=== PATIENT | male | born 1950 | race African-American/Black ===

== ENCOUNTER 2016-06-11 20:32 | Inpatient (IN) | payer MEDICARE ==
[~2016-06-11] VITALS: Ht 188 cm; Wt 99.8 kg
[2016-06-11] MEDS ORDERED: NKM (20:44)
[2016-06-11 20:54] VITALS: BP 155/101
[2016-06-11] MEDS ORDERED: Famotidine 20 MG/ 2ML VIAL IVP ONE (21:15)
--- NOTE | 2016-06-11 21:26 | Emergency Room Report ---
History of Present Illness General Chief Complaint: Dyspnea/Respdistress Source: Patient Present Illness HPI Patient presents with one week of increased dyspnea when he is lying down. It feels like he can't catch his breath when this occurs. Gets better when he sits up. He has been sleeping sitting up. He says he gets chest pain while laying down also. He Is taking a medicine for his esophagus twice a day that is orange and white capsule. He usually cared for at the [facility]. They've had a testing there. He also is treated for PTSD and GERD. He denies any exertional chest pain or exertional dyspnea. No fevers, cough, sore throat, vomiting, diarrhea, melena. Some nausea. Allergies: Coded Allergies: No Known Allergies (Unverified , 06/11/16) Patient History Past Medical History: see triage record Past Surgical History: other - glass eye L Social History: Denies: alcohol use, drug use, smoking Social History Narrative lives by himself Reviewed Nursing Documentation: PMH: Agreed, PSxH: Agreed Nursing Documentation-PM Past Medical History: No Stated History Review of Systems All Other Systems: negative except mentioned in HPI Physical Exam Vital Signs Date Time Temp Pulse Resp B/P Pulse Ox O2 Delivery O2 Flow Rate FiO2 06/11/16 20:39 99.0 89 16 161/95 99 Room Air 06/11/16 20:54 99 Sp02 EP Interpretation: reviewed, normal General Appearance: well appearing, no apparent distress, GCS 15 Head: normocephalic Eyes: bilateral eye PERRL, bilateral eye normal inspection ENT: moist mucus membranes Neck: supple Respiratory: lungs clear, normal breath sounds Cardiovascular #1: regular rate, rhythm Cardiovascular #2: 2+ radial (R) Gastrointestinal: normal inspection, normal bowel sounds, non tender, no mass, non-distended Musculoskeletal: back normal, gait/station normal, normal range of motion Neurologic: alert, oriented x3 Psychiatric: anxious - slightly Skin: normal inspection, warm/dry Medical Decision Making Diagnostic Impression: Primary Impression: Chest pain Qualified Codes: R07.89 - Other chest pain Additional Impressions: Abnormal EKG GERD (gastroesophageal reflux disease) Qualified Codes: K21.9 - Gastro-esophageal reflux disease without esophagitis ER Course The patient presents with an atypical history. He states that this discomfort is when he is laying down he gets dyspneic. He says he also feels weak. We need to evaluate him for possible acute coronary syndrome, acute myocardial infarction, GERD, esophagitis, gastritis amongst others. The patient we evaluated with labs, EKG and chest x-ray. The patient will be treated with Pepcid and Zofran. EKG is abnormal with ST elevation that's not diagnostic for STEMI. Based on this the patient needs to be observed in the hospital to exclude acute coronary syndrome. His initial labs are significant for negative troponin. Patient given aspirin and nitrolpaste. Need to observe patient and repeat troponin with monitoring his heart. Admit telemetry Dr. Chand. Laboratory Tests Test 06/12/16 06:00 06/12/16 14:05 06/12/16 22:10 Troponin I < 0.30 ng/mL (<=0.30) < 0.30 ng/mL (<=0.30) < 0.30 ng/mL (<=0.30) Triglycerides Level 237 mg/dL (< 150) H Cholesterol Level 203 mg/dL (< 200) H LDL Cholesterol 122 mg/dL (60-99) H HDL Cholesterol 34 mg/dL (> 60) Cholesterol/HDL Ratio 6.0 (3.3-4.4) H EKG Diagnostic Results Rate: normal Rhythm: NSR ST Segments: other - J point or ST elevation Inf and anterior, not STEMI criteria Rhythm Strip Diag. Results EP Interpretation: yes Rhythm: NSR, no PVC's, no ectopy Chest X-Ray Diagnostic Results EP Interpretation: Yes Findings: no consolidation, no effusion, no pneumothorax, no acute cardiopulmonary disease Number of Views: 1 Last Vital Signs Date Time Temp Pulse Resp B/P Pulse Ox O2 Delivery O2 Flow Rate FiO2 06/11/16 20:54 94 18 Room Air 99 06/11/16 20:54 98.7 155/101 99 Status: improved Disposition: ADMITTED INPATIENT Condition: Serious Referrals: NOT CHOSEN ALEXANDRA/,REFERRING (PCP) Austin Singer M.D. Jun 11, 2016 21:26
[2016-06-11] MEDS ORDERED: Nitroglycerin 2% oint pkt TOPIC ONE (21:30)
[2016-06-11] MEDS ORDERED: Aspirin Baby 81mg ORAL ONE (21:30)
[2016-06-11 21:36] LABS: BASOPHILS % (AUTO) 1.9 % (0.0-2.0); EOSINOPHILS % (AUTO) 1.2 % (0.0-3.0); LYMPHOCYTES % (AUTO) 26.7 % (20.0-45.0); MEAN CORPUSCULAR HEMOGLOBIN 32.6 PG (27.0-31.0); MEAN CORPUSCULAR HGB CONC 33.8 G/DL (32.0-36.0); MEAN CORPUSCULAR VOLUME 96 FL (80-99); MEAN PLATELET VOLUME 11.5 FL (6.5-10.1); MONOCYTES % (AUTO) 5.8 % (1.0-10.0); NEUTROPHILS % (AUTO) 64.4 % (45.0-75.0); PLATELET COUNT 155 K/UL (150-450); RED BLOOD COUNT 5.29 M/UL (4.70-6.10); RED CELL DISTRIBUTION WIDTH 10.7 % (11.6-14.8); WHITE BLOOD COUNT 7.1 K/UL (4.8-10.8)
[2016-06-11 21:46] LABS: PROTHROMBIN TIME 10.3 SEC (9.30-11.50)
[2016-06-11 21:50] LABS: TROPONIN I < 0.30 ng/mL (<=0.30)
[2016-06-11 21:53] LABS: ALANINE AMINOTRANSFERASE 24 U/L (3-41); ALBUMIN/GLOBULIN RATIO 1.1 (1.0-2.7); ANION GAP 11 (5-15); ASPARTATE AMINO TRANSFERASE 23 U/L (5-40); CALCIUM 9.4 mg/dL (8.6-10.2); CARBON DIOXIDE 30 mEQ/L (20-30); CHLORIDE 99 mEQ/L (98-107); CREATININE 1.1 mg/dL (0.7-1.2); GLOMERULAR FILTRATION RATE > 60 mL/min (>60); HEMOLYSIS 9; POTASSIUM 4.9 mEQ/L (3.4-4.9); SODIUM 140 mEQ/L (135-145); TOTAL PROTEIN 7.6 g/dL (6.6-8.7)
[2016-06-11 22:19] VITALS: BP 146/95
[2016-06-11 22:32] LABS: APPEARANCE,URINE CLEAR; KETONES,URINE NEGATIVE (NEGATIVE); LEUKOCYTE ESTERASE ,URINE NEGATIVE (NEGATIVE); NITRITE,URINE NEGATIVE (NEGATIVE); PH,URINE 8 (4.5-8.0); PROTEIN,URINE NEGATIVE (NEGATIVE); UROBILINOGEN,URINE NORMAL MG/DL (0.0-1.0)
[2016-06-11 23:00] VITALS: BP 162/106
[2016-06-12] VITALS (8 sets, daily range): BP systolic 97–141; BP diastolic 57–95
[2016-06-12] MEDS: Nitroglycerin 2% oint pkt TOPIC SCH ×3 (06:09→20:43)
[2016-06-12 07:10] LABS: TROPONIN I < 0.30 ng/mL (<=0.30)
[2016-06-12] MEDS ORDERED: Aspirin Baby 81mg NG SCH (09:00)
[2016-06-12] MEDS: Aspirin Baby 81mg ORAL SCH (09:11)
[2016-06-12] MEDS: Atenolol 25mg tab ORAL SCH ×2 (09:11→20:43)
[2016-06-12] MEDS: Heparin 5000 units/ml inj SUBQ SCH ×2 (09:20→20:45)
--- NOTE | 2016-06-12 10:13 | Diagnostic Imaging Report ---
Indication: Chest pain Technique: One view of the chest Comparison: none Findings: Lungs and pleural spaces are clear. Heart size is normal. Impression: No acute process This agrees with the preliminary interpretation provided by the emergency room physician
[2016-06-12 14:34] LABS: TROPONIN I < 0.30 ng/mL (<=0.30)
[2016-06-12 22:38] LABS: TROPONIN I < 0.30 ng/mL (<=0.30)
[2016-06-13] VITALS: BP 119/79
[2016-06-13 04:00] VITALS: BP 116/72
[2016-06-13] MEDS: Nitroglycerin 2% oint pkt TOPIC SCH ×2 (06:31→13:29)
[2016-06-13 08:00] VITALS: BP 120/70
[2016-06-13] MEDS: Atenolol 25mg tab ORAL SCH ×2 (08:14→21:31)
[2016-06-13] MEDS: Aspirin Baby 81mg ORAL SCH (08:14)
[2016-06-13] MEDS: Heparin 5000 units/ml inj SUBQ SCH ×2 (09:00→21:35)
--- NOTE | 2016-06-13 09:58 | History and Physical Report ---
DATE OF ADMISSION: 06/11/2016 REASON FOR ADMISSION: Chest pain, possible acute coronary syndrome. HISTORY OF PRESENT ILLNESS: This is a 65-year-old male who presents to the emergency room. The patient was noted to have increasing dyspnea. The patient is cared for at the [facility]. The patient is currently admitted for chest pain, possible acute coronary syndrome. The patient currently comfortable, no significant distress. No chest pain or shortness of breath, no radiation of pain. PAST MEDICAL HISTORY: reviewed SOCIAL HISTORY: Nonsmoker. Nondrinker. FAMILY HISTORY: Noncontributory. REVIEW OF SYSTEMS: Otherwise negative except as above. PHYSICAL EXAMINATION: GENERAL: A well-developed male, comfortable, in no significant distress. VITAL SIGNS: Blood pressure 133/76, pulse 67, respiratory rate 21, saturation 98% on room air, currently afebrile 97. HEENT: Fairly negative. Extraocular movements are grossly intact. NECK: Supple. No jugular venous distention. LUNGS: Otherwise, clear. No rhonchi or wheezes. CARDIAC: S1 and S2. Regular rhythm without murmurs, rubs, or gallops. ABDOMEN: Overall soft, nontender, and nondistended. EXTREMITIES: No cyanosis, clubbing, or edema. NEUROLOGIC: Grossly nonfocal. Awake, alert, and oriented x3. LABORATORY DATA: Reviewed. EKG, normal sinus rhythm, no acute changes. Chest x-ray negative. White count 7.1, hematocrit noted platelets 155,000. Chemistry panel is normal. Cholesterol slightly elevated. IMPRESSION: 1. Chest pain/dyspnea. 2. Possible acute coronary syndrome. 3. Mild hyperlipidemia. RECOMMENDATIONS: aspirin and beta-blockers. Subcutaneous heparin. Serial troponins. Cardiology evaluation for clearance. Discharge once cleared by Cardiology. outpatient followup. Emiliano Chand M.D. DR: Diana JOB#: [id number] CC: SARITA
--- NOTE | 2016-06-13 10:40 | General Progress Note ---
Assessment/Plan Assessment/Plan IMPRESSION: 1. Chest pain/dyspnea. 2. Possible acute coronary syndrome. 3. Mild hyperlipidemia. PLAN defer to cards if agreed, dc planning consider further testing monitor for change Subjective Allergies: Coded Allergies: No Known Allergies (Unverified , 06/11/16) Subjective reviewed and discussed awaiting cards evaluation Objective Last 24 Hour Vital Signs Date Time Temp Pulse Resp B/P Pulse Ox O2 Delivery O2 Flow Rate FiO2 06/13/16 08:14 75 120/70 06/13/16 06:31 120/72 06/13/16 04:00 86 06/13/16 04:00 97.7 61 20 116/72 97 Room Air 06/13/16 00:00 57 06/13/16 00:00 97.2 56 20 119/79 99 Room Air 06/12/16 21:15 97.5 06/12/16 20:43 76 137/68 06/12/16 20:00 64 06/12/16 20:00 97.5 76 23 137/68 100 Room Air 06/12/16 16:00 97.3 63 18 97/57 100 Room Air 06/12/16 16:00 60 06/12/16 13:35 131/85 06/12/16 12:23 97.0 63 18 131/85 95 Room Air Intake and Output 06/12/16 06/13/16 19:00 07:00 Intake Total 360 ml 240 ml Output Total 150 ml 700 ml Balance 210 ml -460 ml Intake Oral 360 ml 240 ml Output Urine Total 150 ml 700 ml # Voids 1 1 Laboratory Tests 06/12/16 14:05: Troponin I < 0.30 06/12/16 22:10: Troponin I < 0.30 Height (Feet): 6 Height (Inches): 2.00 Weight (Pounds): 220 Objective GENERAL: A well-developed male, comfortable, in no significant distress. HEENT: Fairly negative. Extraocular movements are grossly intact. NECK: Supple. No jugular venous distention. LUNGS: Otherwise, clear. No rhonchi or wheezes. CARDIAC: S1 and S2. Regular rhythm without murmurs, rubs, or gallops. ABDOMEN: Overall soft, nontender, and nondistended. EXTREMITIES: No cyanosis, clubbing, or edema. NEUROLOGIC: Grossly nonfocal. Awake, alert, and oriented x3. MARIAN GUTHRIE Jun 13, 2016 10:40
[2016-06-13 12:00] VITALS: BP 95/70
[2016-06-13 16:00] VITALS: BP 124/73
[2016-06-13 20:00] VITALS: BP 142/92
[2016-06-13] MEDS ORDERED: Fleet's Enema 133ml RECTAL ONE (21:00)
[2016-06-14] VITALS: BP 119/75
--- NOTE | 2016-06-14 02:18 | Progress Note ---
DATE: 06/13/2016 SUBJECTIVE: The patient had a headache. He feels better, however, once the nitroglycerin paste has been discontinued. He denies nausea or vomiting. Visual disturbances not noted. His chest pain has not recurred since presentation here two nights ago. Troponin levels remain negative. OBJECTIVE: VITAL SIGNS: Afebrile; blood pressure 124/73, earlier 95/65; heart rate 71; respiratory rate 18 to 20; monitored rhythm is sinus. LUNGS: Bilateral breath sounds. No rales. HEART: Regular rhythm and rate. Normal S1 and S2. There is a fourth heart sound. ABDOMEN: Soft. EXTREMITIES: No edema. LABORATORY AND IMAGING DATA: EKG sinus rhythm, possible septal infarction of indeterminate age. LDL is 122 and HDL is 36. IMPRESSION: 1. Acute coronary syndrome. 2. Dyslipidemia. 3. Nitrite headache. 4. Nitrate-related hypotension, resolved. PLAN: 1. Hold nitrates. 2. Continued anti-platelet therapy. 3. Maintain beta-kenji. 4. Exercise stress test with myocardial perfusion for assessment of coronary flow reserve. Austin Taylor M.D. DR: DEBORA JOB#: [id number] CC:
--- NOTE | 2016-06-14 02:48 | Consultation ---
DATE OF CONSULTATION: 06/12/2016 REQUESTING PHYSICIAN: Emiliano Chand M.D. REASON: Chest pain. HISTORY OF PRESENT ILLNESS: This is a 65-year-old male. He has several risk factors for premature coronary disease. He presented to the hospital complaining of exertional shortness of breath and chest pain. SOCIAL HISTORY: Negative for smoking or alcohol use. FAMILY HISTORY: Noncontributory. MEDICATIONS: Reviewed and reconciled. PAST MEDICAL HISTORY: 1. Hypertension. 2. Hyperlipidemia. REVIEW OF SYSTEMS: No fevers or chills. No cough or sputum production. No melena or bright red blood per rectum. No history of prostate cancer. No history of diabetes or thyroid disorder. No history of seizure or stroke. PHYSICAL EXAMINATION: GENERAL: Well developed and well nourished. VITAL SIGNS: Blood pressure 133/76, pulse 68, respirations 18, and afebrile. NECK: Supple. Jugular venous pressure normal. Carotid upstrokes without delay or bruits. LUNGS: Clear. CARDIAC: Regular rhythm and rate. Normal S1 and S2 with a fourth heart sound. ABDOMEN: Soft and nontender. EXTREMITIES: Good pulses. No edema. NEUROLOGIC: Nonfocal. LABORATORY AND IMAGING DATA: EKG, sinus rhythm, possible septal infarction of indeterminate age. Chest x-ray with no acute process. Troponin #1 is negative. Cholesterol panel was notably with LDL of 122 and HDL of 36. IMPRESSION: 1. Acute coronary syndrome. 2. Dyslipidemia. PLAN: 1. Cardiac monitoring. 2. Nasal oxygen. 3. Oral aspirin. 4. Beta blockade with hold parameters for low heart rate. 5. DVT prophylaxis. 6. Serial troponin levels. If no definitive signs of ischemia, a provocative stress test will be obtained to assess for coronary flow reserve. 7. Anti-lipid therapy will be considered as well with a statin drug depending on findings. Carol Centeno JOB#: [id number] CC:
[2016-06-14 04:00] VITALS: BP 109/64
[2016-06-14 08:45] VITALS: BP 119/77
--- NOTE | 2016-06-14 08:48 | General Progress Note ---
Assessment/Plan Assessment/Plan IMPRESSION: 1. Chest pain/dyspnea. 2. Possible acute coronary syndrome. 3. Mild hyperlipidemia. PLAN defer to cards stress testing today and dc pending results monitor for change outpatient follow up discussed Subjective Allergies: Coded Allergies: No Known Allergies (Unverified , 06/11/16) Subjective reviewed and discussed cards evaluation noted for stress Objective Last 24 Hour Vital Signs Date Time Temp Pulse Resp B/P Pulse Ox O2 Delivery O2 Flow Rate FiO2 06/14/16 08:45 98.1 62 18 119/77 96 Room Air 06/14/16 08:09 68 06/14/16 04:00 60 06/14/16 04:00 97.9 60 16 109/64 98 Room Air 06/14/16 00:00 98.2 75 16 119/75 100 Room Air 06/14/16 00:00 65 06/13/16 21:31 76 142/92 06/13/16 20:00 78 06/13/16 20:00 98.4 76 20 142/92 98 Room Air 06/13/16 16:00 97.0 71 19 124/73 100 06/13/16 16:00 70 06/13/16 13:29 95/65 06/13/16 12:00 97.6 65 20 95/70 98 Room Air 06/13/16 09:12 97.7 Intake and Output 06/13/16 06/14/16 19:00 07:00 Intake Total 490 ml 500 ml Balance 490 ml 500 ml Intake Oral 490 ml 500 ml # Voids 2 3 # Bowel Movements 1 Height (Feet): 6 Height (Inches): 2.00 Weight (Pounds): 220 Objective GENERAL: A well-developed male, comfortable, in no significant distress. HEENT: Fairly negative. Extraocular movements are grossly intact. NECK: Supple. No jugular venous distention. LUNGS: Otherwise, clear. No rhonchi or wheezes. CARDIAC: S1 and S2. Regular rhythm without murmurs, rubs, or gallops. ABDOMEN: Overall soft, nontender, and nondistended. EXTREMITIES: No cyanosis, clubbing, or edema. NEUROLOGIC: Grossly nonfocal. Awake, alert, and oriented x3. MARIAN GUTHRIE Jun 14, 2016 08:48
--- NOTE | 2016-06-14 10:59 | Cardiology Report ---
APPROVED REPORT EKG Measurement Heart [id number] MI [id number] [id number] Sinus bradycardia with sinus arrhythmia Septal infarct, age undetermined Abnormal ECG
[2016-06-14] MEDS: Atenolol 25mg tab ORAL SCH (11:59)
[2016-06-14] MEDS: Heparin 5000 units/ml inj SUBQ SCH (12:00)
[2016-06-14] MEDS: Aspirin Baby 81mg ORAL SCH (12:03)
[2016-06-14 12:48] VITALS: BP 130/74
[2016-06-14 16:00] VITALS: BP 118/76
--- NOTE | 2016-06-14 16:04 | Diagnostic Imaging Report ---
Indication: chest pain Technique: The study was conducted under the supervision of a promotions executive producer. Exercise on a treadmill utilizing (Singh protocol) followed by intravenous administration of 30.8 mCi of technetium 99m Myoview was performed. Three plane SPECT imaging of the heart was then performed. A resting study was performed as part of the one-day protocol with 10.5 mCi of technetium 99m myoview injected intravenously at that time. Three plane SPECT imaging of the heart was obtained. Comparison: None Clinical data: Maximum heart rate achieved was 141 beats per minute which is 92% of the maximum predicted heart rate. Resting BP 128/84. Peak exercise BP 150/104. Patient exercised for 10 minutes and 20 seconds. Exercise stopped electively because exertional level was achieved. No EKG changes demonstrated. 1. Clinical response: Non ischemic 2. Electrocardiographic response: Non ischemic Findings: The myocardial perfusion scan demonstrates no fixed or reversible perfusion defects. Some attenuation of inferior wall noted. The left ventricular ejection fraction estimated at approximately 64%. Impression: Negative myocardial perfusion scan
[2016-06-14 20:00] VITALS: BP 121/73
--- NOTE | 2016-06-14 22:48 | Progress Note ---
DATE: 06/14/2016 SUBJECTIVE: The patient has no chest pain and no shortness of breath. He completed exercise stress test today. Results of the imaging are pending. OBJECTIVE: VITAL SIGNS: Blood pressure is 130/74, pulse rate 78, respiratory rate 18, and afebrile. Oxygen saturation on room air is 95%. NECK: Supple. LUNGS: Clear. CARDIAC: Regular rhythm and rate. Normal S1 and S2 with a fourth heart sound. ABDOMEN: Soft. EXTREMITIES: Without edema. IMPRESSION: 1. Acute coronary syndrome. 2. Hypertension. 3. Dyslipidemia. 4. Status post nitrate headache. PLAN: 1. Continue anti-platelet therapy with low-dose aspirin. 2. Await myocardial perfusion study results. 3. Outpatient followup arranged. Austin Taylor M.D. DR: Harjit JOB#: [id number] CC:
--- NOTE | 2016-06-16 10:55 | Discharge Summary ---
Discharge Summary Hospital Course Date of Admission Jun 11, 2016 at 22:03 Date of Discharge Jun 14, 2016 at 21:50 Admitting Diagnosis ACS HPI Ron Cain is a 65 year old male who was admitted on Jun 11, 2016 at 22: 03 for Acute Coronary Syndrome Hospital Course [id number] Discharge Discharge Disposition Patient was discharged to Home with Home Health(06) Discharge Diagnoses: Anju Duque NP Jun 16, 2016 10:55
--- NOTE | 2016-06-17 00:18 | Discharge Summary 2 SIG ---
DATE OF ADMISSION: 06/11/2016 DATE OF DISCHARGE: 06/14/2016 INGOT SUPERVISOR: Austin Taylor M.D. BRIEF HOSPITAL COURSE: The patient is a 65-year-old male, who presented to ED after increased dyspnea, chest pain, and possible ACS. He was admitted for cardiac evaluation and was started on aspirin and beta-kenji with subcutaneous heparin. Serial troponins were monitored. Dr. Taylor was consulted. EKG showed sinus rhythm with possible septal infarct of indeterminate age. Chest x-ray showed no acute process. Troponin was negative. Laboratories showed hyperlipidemia and was started on Pravachol 20 mg daily at bedtime. He underwent a nuclear stress test and was nonischemic. He was eventually discharged home with home health and was advised outpatient followup. FINAL DIAGNOSES: 1. Possible acute coronary syndrome. 2. Mild hyperlipidemia. 3. Hypertension. 4. Status post nitrate headache. Emiliano Chand M.D. I have been assigned to dictate discharge summary on this account and I was not involved in the patient's management. Anju Duque N.P. DR: Mercedes JOB#: [id number] CC: SARITA
--- NOTE | 2016-06-19 10:30 | Cardiology Report ---
APPROVED REPORT EKG Measurement Heart [id number] NM 190P72 [id number] Normal sinus rhythm Left axis deviation Cannot rule out Anterior infarct, age undetermined Abnormal ECG
== END 2016-06-14 21:50 | disposition home or self-care (01) | DRG 311 ==
LOC: EMR 21:04 → INTOOBSV 22:03 → 2E 22:03 → OBSVTOIN 22:03 → EDBEDREQ 06-12 01:15
DX: I24.9 Acute ischemic heart disease, unspecified (principal); I95.2 Hypotension due to drugs; I10 Essential (primary) hypertension; E78.5 Hyperlipidemia, unspecified; G44.40 Drug-induced headache, not elsewhere classified, not intractable; T46.3X5A Adverse effect of coronary vasodilators, initial encounter
CPT/HCPCS: 36415; 71010; 78452; 80053; 80061; 80300; 81003; 82550; 83880; 84484; 85025; 85610; 85730; 93005; 93017; J2405

== ENCOUNTER 2017-09-17 00:19 | Emergency (ER) | payer MEDICARE, OTHER ==
[~2017-09-17] VITALS: Ht 188 cm; Wt 97.5 kg
[~2017-09-17 00:19] MED LIST: NKM
[2017-09-17] MEDS ORDERED: Augmentin 875mg Tab ORAL ONE (00:45)
[2017-09-17] MEDS ORDERED: Ketorolac 60mg Inj IM ONE (00:45)
[2017-09-17 02:27] LABS: BASOPHILS % (AUTO) 2.7 % (0.0-2.0); EOSINOPHILS % (AUTO) 3.8 % (0.0-3.0); HEMATOCRIT 45.7 % (42.0-52.0); HEMOGLOBIN 15.6 G/DL (14.2-18.0); LYMPHOCYTES % (AUTO) 40.9 % (20.0-45.0); MEAN CORPUSCULAR VOLUME 93 FL (80-99); MONOCYTES % (AUTO) 11.3 % (1.0-10.0); NEUTROPHILS % (AUTO) 41.2 % (45.0-75.0); PLATELET COUNT 121 K/UL (150-450); RED BLOOD COUNT 4.92 M/UL (4.70-6.10); WHITE BLOOD COUNT 4.3 K/UL (4.8-10.8)
[2017-09-17 02:30] VITALS: BP 127/83
[2017-09-17 02:39] LABS: ANION GAP 6 mmol/L (5-15); BLOOD UREA NITROGEN 15 mg/dL (7-18); CALCIUM 8.4 MG/DL (8.5-10.1); CARBON DIOXIDE 29 MMOL/L (21-32); CHLORIDE 104 MMOL/L (98-107); CREATININE 1.2 MG/DL (0.55-1.30); POTASSIUM 3.9 MMOL/L (3.5-5.1); SODIUM 138 MMOL/L (136-145)
[2017-09-17 02:53] LABS: ALANINE AMINOTRANSFERASE 34 U/L (12-78); ALBUMIN 3.4 G/DL (3.4-5.0); ALKALINE PHOSPHATASE 63 U/L (46-116); ASPARTATE AMINO TRANSFERASE 24 U/L (15-37); BILIRUBIN,TOTAL 1.3 MG/DL (0.2-1.0); CKMB 2.1 NG/ML (0.0-3.6); CREATINE KINASE 297 U/L (26-308)
[2017-09-17 02:54] LABS: BILIRUBIN,DIRECT 0.3 MG/DL (0.0-0.3)
[2017-09-17] MEDS ORDERED: IBUPROFEN600 MG ORAL (03:12)
[2017-09-17] MEDS ORDERED: AMOXICILLIN500 MG ORAL (03:12)
[2017-09-17 04:00] VITALS: BP 132/88
[2017-09-17 04:03] VITALS: BP 132/88
--- NOTE | 2017-09-17 04:35 | Emergency Room Report ---
History of Present Illness General Chief Complaint: Dyspnea/Respdistress Source: Patient Present Illness HPI Patient presents initially mainly with complaint of sore throat Pain with swallowing Denies any fever denies any chest pain However he did also complain of some shortness of breath sensation Denies any back or flank pain denies any pleurisy Denies any recent fall or trauma Allergies: Coded Allergies: No Known Allergies (Unverified , 06/11/16) Patient History Past Medical History: see triage record Pertinent Family History: none Reviewed Nursing Documentation: PMH: Agreed; PSxH: Agreed Nursing Documentation-PMH Past Medical History: No Stated History Hx Cardiac Problems: Yes Hx Cancer: No Hx Gastrointestinal Problems: No Hx Neurological Problems: No Review of Systems All Other Systems: negative except mentioned in HPI Physical Exam Vital Signs Date Time Temp Pulse Resp B/P (MAP) Pulse Ox O2 Delivery O2 Flow Rate FiO2 09/17/17 00:28 97.6 72 15 133/94 96 Room Air 97.5 Sp02 EP Interpretation: reviewed, normal General Appearance: well appearing, no apparent distress Head: normocephalic, atraumatic Eyes: bilateral eye PERRL, bilateral eye EOMI ENT: hearing grossly normal, normal pharynx, TMs + canals normal, uvula midline , pharyngeal erythema Neck: full range of motion, supple, no meningismus, no bony tend Respiratory: lungs clear, normal breath sounds, no rhonchi, no respiratory distress, no retraction, no accessory muscle use Cardiovascular #1: normal peripheral pulses, regular rate, rhythm, no edema, no gallop, no JVD, no murmur Gastrointestinal: normal bowel sounds, non tender, soft, no mass, no organomegaly, non-distended, no guarding, no hernia, no pulsatile mass, no rebound Genitourinary: no CVA tenderness Musculoskeletal: normal inspection Neurologic: oriented x3, responsive, stage manager III-XII nml as tested, motor strength/ tone normal, sensory intact Psychiatric: mood/affect normal Skin: normal color, no rash, warm/dry, palpation normal Lymphatic: normal inspection, no adenopathy Medical Decision Making Diagnostic Impression: Primary Impression: pharyngitis ER Course Patient initially had antibiotic provided an x-ray imaging obtained The x-ray showed questionable interstitial disease versus acute pathology given the questionable shortness of breath history patient did have further extensive workup including blood work and cardiac etiology workup EKG was normal patient continues to saturate well hemodynamically appropriate BNP and other blood work appropriate and patient will have initial conservative outpatient trial Labs Test 09/17/17 02:16 White Blood Count 4.3 K/UL (4.8-10.8) Red Blood Count 4.92 M/UL (4.70-6.10) Hemoglobin 15.6 G/DL (14.2-18.0) Hematocrit 45.7 % (42.0-52.0) Mean Corpuscular Volume 93 FL (80-99) Mean Corpuscular Hemoglobin 31.8 PG (27.0-31.0) Mean Corpuscular Hemoglobin Concent 34.2 G/DL (32.0-36.0) Red Cell Distribution Width 10.0 % (11.6-14.8) Platelet Count 121 K/UL (150-450) Mean Platelet Volume 9.0 FL (6.5-10.1) Neutrophils (%) (Auto) 41.2 % (45.0-75.0) Lymphocytes (%) (Auto) 40.9 % (20.0-45.0) Monocytes (%) (Auto) 11.3 % (1.0-10.0) Eosinophils (%) (Auto) 3.8 % (0.0-3.0) Basophils (%) (Auto) 2.7 % (0.0-2.0) Sodium Level 138 MMOL/L (136-145) Potassium Level 3.9 MMOL/L (3.5-5.1) Chloride Level 104 MMOL/L (98-107) Carbon Dioxide Level 29 MMOL/L (21-32) Anion Gap 6 mmol/L (5-15) Blood Urea Nitrogen 15 mg/dL (7-18) Creatinine 1.2 MG/DL (0.55-1.30) Estimat Glomerular Filtration Rate > 60 mL/min (>60) Glucose Level 110 MG/DL (74-106) Calcium Level 8.4 MG/DL (8.5-10.1) Total Bilirubin 1.3 MG/DL (0.2-1.0) Direct Bilirubin 0.3 MG/DL (0.0-0.3) Aspartate Amino Transf (AST/SGOT) 24 U/L (15-37) Alanine Aminotransferase (ALT/SGPT) 34 U/L (12-78) Alkaline Phosphatase 63 U/L (46-116) Total Creatine Kinase 297 U/L (26-308) Creatine Kinase MB 2.1 NG/ML (0.0-3.6) Creatine Kinase MB Relative Index 0.7 Troponin I 0.000 ng/mL (0.000-0.056) Pro-B-Type Natriuretic Peptide 12 pg/mL (0-125) Total Protein 6.9 G/DL (6.4-8.2) Albumin 3.4 G/DL (3.4-5.0) Globulin 3.5 g/dL Albumin/Globulin Ratio 1.0 (1.0-2.7) Rhythm Strip Diag. Results EP Interpretation: yes Rate: 66 Rhythm: NSR, no PVC's, no ectopy Chest X-Ray Diagnostic Results Chest X-Ray Diagnostic Results : Chest X-Ray Ordered: Yes # of Views/Limited/Complete: 1 View Indication: Shortness of Breath EP Interpretation: Yes Interpretation: no consolidation, no effusion, no pneumothorax Impression: No acute disease Electronically Signed by: Wild Garibay DO Last Vital Signs Date Time Temp Pulse Resp B/P (MAP) Pulse Ox O2 Delivery O2 Flow Rate FiO2 09/17/17 04:03 97.6 79 24 132/88 100 Room Air 97.6 Status: improved Disposition: HOME, SELF-CARE Condition: Improved Scripts Ibuprofen* (MOTRIN*) 600 Mg Tablet 600 MG ORAL Q8H PRN for For Pain, #20 TAB 0 Refills Prov: Wild Garibay DO 09/17/17 Amoxicillin* (AMOXIL*) 500 Mg Capsule 500 MG ORAL THREE TIMES A DAY, #21 CAP Prov: Wild Garibay DO 09/17/17 Referrals: NOT CHOSEN IPA/MD,REFERRING (PCP) Patient Instructions: Pharyngitis, [id number] Additional Instructions: Patient is provided with the discharge instructions notified to follow up with primary doctor in the next 2-3 days otherwise return to the er with any worsening symptoms. Please note that this report is being documented using [employer] technology. This can lead to erroneous entry secondary to incorrect interpretation by the dictating instrument. Wild Garibay DO Sep 17, 2017 04:35
--- NOTE | 2017-09-17 11:30 | Diagnostic Imaging Report ---
Indication: Dyspnea Comparison: 06/11/2016 A single view chest radiograph was obtained. Findings: Some prominence of the interstitium of the lungs demonstrated with mild cardiomegaly. Mild interstitial edema may be present. Please correlate clinically. Bones are unremarkable. IMPRESSION: Suspected mild interstitial edema. Please correlate clinically
--- NOTE | 2017-09-20 17:33 | Cardiology Report ---
APPROVED REPORT EKG Measurement Heart [id number] [place] 188P74 [id number] Normal sinus rhythm Normal ECG
== END 2017-09-17 04:00 | disposition home or self-care (01) ==
LOC: EMR 01:19
DX: J02.9 Acute pharyngitis, unspecified (principal)
CPT/HCPCS: 36415; 71045; 80053; 82248; 82550; 82553; 83880; 84484; 85025; 93005; 96372; 99284; J7512